=== PATIENT | female | born 1990 | race African-American/Black ===

== ENCOUNTER 2017-08-11 19:46 | Emergency (ER) | payer SELFPAY ==
[2017-08-11 19:53] VITALS: BP 130/89; PULSE 95; TEMP 98.7; BMI 30.9
[2017-08-11] MEDS ORDERED: KETOROLAC TROMETHAMINE 30 MG/1 ML VIAL IM ONE (20:50)
[2017-08-11] MEDS ORDERED: KETOROLAC TROMETHAMINE 30 MG/1 ML VIAL ONE (20:51)
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
== END 2017-08-11 22:08 | disposition home or self-care (01) ==
LOC: JERFT 19:46
PROC: 3E0233Z Introduction of Anti-inflammatory into Muscle, Percutaneous Approach (ICD-10-PCS; principal; 2017-08-11)
DX: S09.8XXA Other specified injuries of head, initial encounter (principal); M62.838 Other muscle spasm; Y04.2XXA Assault by strike against or bumped into by another person, initial encounter; Y93.F9 Activity, other caregiving; Y92.118 Other place in children's home and orphanage as the place of occurrence of the external cause; Y99.0 Civilian activity done for income or pay
CPT/HCPCS: 70450-TC; 72125-TC; 84703; 99281-25